=== PATIENT | female | born 2005 | race Caucasian/White ===

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

== ENCOUNTER 2024-01-19 13:45 | Outpatient (CLI) | payer OTHER, SELFPAY ==
--- NOTE | ~2024-01-19 | XR_ITS ---
XR hip LT min 2V Ordering provider: Mary Cole History: . LEFT HIP PAIN . Comparison: None. FINDINGS: BONES: No acute fracture or dislocation. HIP JOINT SPACES: Normal. SACROILIAC JOINT SPACES/LUMBAR SPINE: The sacroiliac joint spaces are normal. PUBIC SYMPHYSIS: Normal. SOFT TISSUES: Normal. IMPRESSION: No acute osseous abnormality visualized pelvis and left hip. Reviewed, dictated and finalized at location A.
== END 2024-01-19 13:46 ==
PROVIDERS: PCP Pediatrics
DX: M25.552 Pain in left hip (principal)
CPT/HCPCS: 73502

== ENCOUNTER 2024-01-31 10:09 | Outpatient (CLI) | payer OTHER, SELFPAY ==
--- NOTE | ~2024-01-31 | MR_ITS ---
EXAMINATION: MR hip LT wo con DATE: 01/31/2024 11:14 INDICATION: Left hip pain TECHNIQUE: Magnetic resonance imaging (MRI) of the left hip was performed without intravenous contra st. Sequences included full-field axial PD-weighted FS FSE and T1-weighted FSE, coronal of the pelvis with PD-weighted FS FSE, small field of view of the affected hip with axial PD-weighted FS FSE, sag ittal PD-weighted FS FSE and coronal PD weighted FS FSE. Additional radial T1-weighted FGR oriented o rthogonal to the acetabular rim were obtained for evaluation of the labrum. COMPARISON: None FINDINGS: Bones/labrum/cartilage: Alignment is normal. No fracture, avascular necrosis or pathologic marrow replacing process. There a ppears to be anterior left acetabular over coverage. There also appears to be bilateral decreased ant erosuperior femoral head/neck offset. There is a tear of the 12:00-10:00 position of the superior to posterosuperior left acetabular labrum including delamination at the chondral labral junction. Small focus of chondral ulceration versus fissuring slightly medial to the apex of the femoral head with sm all focus of underlying subarticular edema-like signal change. Fluid: Symmetric physiologic amount of fluid within both hip joints. Trace amount of likely physiologic free fluid at the cul-de-sac. Soft tissues: Normal and symmetric muscle bulk and signal in the pelvis and visualized proximal thighs. The iliopso as, gluteal and proximal hamstring tendons are normal. Limited evaluation of visceral organs of the p rigo is unremarkable. No pathologically enlarged pelvic/inguinal lymphadenopathy. IMPRESSION: 1. Small focus of high-grade cartilage at the superomedial aspect of the left femoral head and superi or to superolateral chondral labral delamination with associated labral tear. 2. Digestive bilateral decreased femoral head/neck offset and left-sided acetabular over coverage whi ch could be more definitively assessed with dedicated AP pelvis and bilateral Carr views of the hips. On the left this could predispose towards combination of cam and pincer-type femoral acetabular impi ngement. Correlate clinically for signs/symptoms of impingement. Reviewed, dictated and finalized at location A. IMPRESSION: 1. Small focus of high-grade cartilage at the superomedial aspect of the left f emoral head and superior to superolateral chondral labral delamination with ass ociated labral tear. 2. Digestive bilateral decreased femoral head/neck offset and left-sided acetab ular over coverage which could be more definitively assessed with dedicated AP pelvis and bilateral Carr views of the hips. On the left this could predispose towards combination of cam and pincer-type femoral acetabular impingement. Macho elate clinically for signs/symptoms of impingement.
== END 2024-01-31 10:10 ==
DX: M25.552 Pain in left hip (principal)
CPT/HCPCS: 73721